=== PATIENT | male | born 1985 | race African-American/Black ===

== ENCOUNTER → 2017-05-11 | Outpatient (CLI) | payer BC ==
[~2017-05-11] MED LIST: ACYC-57 PO; [UNRECOGNIZED DRUG - OTHER] PO
== END | disposition home or self-care (01) ==
LOC: STAR 08:06
PROVIDERS: ATTEND Orthopaedic Surgery
DX: Z01.818 Encounter for other preprocedural examination (principal); S83.282A Other tear of lateral meniscus, current injury, left knee, initial encounter; S83.242S Other tear of medial meniscus, current injury, left knee, sequela; S83.512S Sprain of anterior cruciate ligament of left knee, sequela; Z79.899 Other long term (current) drug therapy; X58.XXXA Exposure to other specified factors, initial encounter; Y93.89 Activity, other specified; Y92.89 Other specified places as the place of occurrence of the external cause; Y99.8 Other external cause status
CPT/HCPCS: 81003

== ENCOUNTER 2017-05-17 10:32 | Day surgery (SDC) | payer BC ==
[~2017-05-17] VITALS: Ht 172.7 cm; Wt 76.2 kg
[~2017-05-17 10:32] MED LIST changes: +EPINEPHRINE 1 MG/ML, 1ML ONE; +LIDOCAINE/PF 1%, 30ML ONE; +ROPIvacaine/PF 0.5%, 30 ML ONE
[2017-05-17] MEDS ORDERED: LACTATED RINGERS 1,000 ML IV SCH (10:53)
[2017-05-17 10:57] VITALS: BP 137/90
[2017-05-17] MEDS ORDERED: ROPIvacaine/PF 0.5%, 30 ML INFIL ONE (12:07)
[2017-05-17] MEDS ORDERED: LIDOCAINE 1%-EPI 1:100K, 30ML INFIL ONE (12:08)
[2017-05-17] MEDS ORDERED: MIDAZOLAM 1 MG/ML, 2ML ONE (12:32)
[2017-05-17] MEDS ORDERED: FENTANYL PF 250 MCG/5ML ONE (12:32)
[2017-05-17] MEDS ORDERED: CEFAZOLIN 1,000 MG ONE (12:34)
[2017-05-17] MEDS ORDERED: DEXAMETHASONE 4 MG/ML, 5ML ONE (12:34)
[2017-05-17] MEDS ORDERED: PROPOFOL 10 MG/ML, 20ML ONE (12:34)
[2017-05-17] MEDS ORDERED: KETAMINE 10 MG/ML, 20ML ONE (12:48)
[2017-05-17] MEDS ORDERED: BUPIVACAINE/PF-EPI 0.5% 1:200K ONE (13:17)
[2017-05-17] MEDS ORDERED: FENTANYL PF 100 MCG/2ML ONE (14:49)
[2017-05-17] MEDS ORDERED: OXYcodone 5 MG/5 ML ORAL.SOL UDC ONE (14:50)
[2017-05-17] MEDS ORDERED: HYDROmorphone 1 MG/ML, 1ML IV PRN (15:00)
[2017-05-17] MEDS ORDERED: ONDANSETRON 2MG/ML, 2ML IVPush PRN (15:00)
[2017-05-17] MEDS ORDERED: ACETAMINOPHEN 325 MG TABLET PO PRN (15:00)
[2017-05-17] MEDS ORDERED: OXYcodone 5 MG/5 ML ORAL.SOL UDC PO PRN (15:00)
[2017-05-17] MEDS ORDERED: hydrALAzine 20 MG/ML, 1ML IV PRN (15:00)
[2017-05-17] MEDS ORDERED: METOCLOPRAMIDE 5 MG/ML, 2ML IV PRN (15:00)
[2017-05-17] MEDS ORDERED: LABETALOL 5MG/ML, 20ML IV PRN (15:00)
[2017-05-17] MEDS ORDERED: FENTANYL PF 100 MCG/2ML IV PRN (15:00)
[2017-05-17] MEDS ORDERED: KETOROLAC 30 MG/1 ML ONE (16:03)
[2017-05-17] MEDS ORDERED: KETOROLAC 30 MG/1 ML IVPush SCH (16:30)
[2017-05-17] MEDS ORDERED: ONDANSETRON ODT 4 MG ONE (16:57)
[2017-05-17] MEDS ORDERED: ONDANSETRON ODT 4 MG PO ONE (17:00)
== END 2017-05-17 17:10 | disposition home or self-care (01) ==
LOC: OUT 10:32
PROVIDERS: ATTEND Orthopaedic Surgery
DX: S83.232A Complex tear of medial meniscus, current injury, left knee, initial encounter (principal); S83.282A Other tear of lateral meniscus, current injury, left knee, initial encounter; S83.512A Sprain of anterior cruciate ligament of left knee, initial encounter; M65.862 Other synovitis and tenosynovitis, left lower leg; Y93.67 Activity, basketball; Y93.89 Activity, other specified; Y92.89 Other specified places as the place of occurrence of the external cause; Y99.8 Other external cause status
CPT/HCPCS: 29880; 29888; 73560; 76000; C1713; J0171; J0690; J1100; J1885; J2704; J2795; J3010; J3490; J7120; Q0162; J2250